=== PATIENT | female | born 1930 | race Caucasian/White ===

== ENCOUNTER → 2016-07-02 11:51 | Outpatient (CLI) | payer MEDICARE, OTHER ==
[2014-01-05 14:14] VITALS: BMI 18.8
[~2016-07-02 11:51] MED LIST: BAYER CHEWABLE81 MG PO; BENADRYL A12.5 MG/5 PO; BOUDREAUXS113 GM TP; CARDIZEM CD180 MG PO; DEXTROSE 50%/WA50 M2 IV; DULCOLAX10 MG/SUPP RC; ELIQUIS2.5 MG PO; FLORANEX / LACT1 TAB PO; K-DUR20 MEQ PO; LANOXIN125 MCG PO; LASIX40 MG PO; LEVAQUIN250 MG PO; LEVOXYL50 MCG PO; LIPITOR10 MG PO; MEGACE400 MG/10 PO; MELATONIN 3 MG1 TAB PO; MIRALAX17 GM PO; NALOXONE HC0.4 MG/M1 IV; NYSTATIN ORAL SU5 ML PO; ONDANSETRON4 MG/2 M3 IV; POVIDONE-IODINE30 GM TP; PROAIR HFA8.5 GM INH; PROTONIX40 MG PO; SALINE FLUSH10 ML IV; SENOKOT-S TABLE1 TAB PO; SPIRIVA18 MCG INH; XANAX0.25 MG PO; XOPENEX 0.0.63 MG/3 UPD; ZOFRAN4 MG PO
== END | disposition home or self-care (01) ==
LOC: D.RAD 11:51
DX: J98.11 Atelectasis (principal)

== ENCOUNTER → 2017-03-31 13:36 | Outpatient (CLI) | payer MEDICARE, OTHER ==
[2014-01-05 14:14] VITALS: BMI 18.8
== END | disposition home or self-care (01) ==
LOC: D.RT 13:36
DX: J44.9 Chronic obstructive pulmonary disease, unspecified (principal)

== ENCOUNTER → 2017-10-08 14:06 | Outpatient (CLI) | payer MEDICARE, OTHER ==
[2014-01-05 14:14] VITALS: BMI 18.8
== END | disposition home or self-care (01) ==
LOC: D.RAD 14:06
DX: J44.9 Chronic obstructive pulmonary disease, unspecified (principal)